=== PATIENT | female | born 1975 | race African-American/Black ===

== ENCOUNTER 2020-12-15 03:43 | Emergency (ER) | payer MEDICAID ==
[~2020-12-15] VITALS: Ht 165.1 cm; Wt 84.0 kg
[2020-12-15 04:05] VITALS: BP 122/62
[2020-12-15] MEDS ORDERED: ACETAMINOPHEN 500 MG TABLET PO ONE (04:15)
== END 2020-12-15 04:23 | disposition home or self-care (01) ==
LOC: EMS 03:49
DX: R51.9 Headache, unspecified (principal); Y04.2XXA Assault by strike against or bumped into by another person, initial encounter; Y93.89 Activity, other specified; Y92.89 Other specified places as the place of occurrence of the external cause; Y99.8 Other external cause status
CPT/HCPCS: 99283

== ENCOUNTER 2022-07-07 21:36 | Emergency (ER) | payer MEDICAID, OTHER ==
[~2022-07-07] VITALS: Ht 154.9 cm; Wt 81.8 kg
[2022-07-07 21:59] VITALS: BP 113/64
[2022-07-08] MEDS ORDERED: IBUP-1554 PO (02:33)
[2022-07-08] MEDS ORDERED: ACET-2080 PO (02:33)
[2022-07-08] MEDS ORDERED: BACL10TA PO (02:33)
== END 2022-07-08 03:02 | disposition home or self-care (01) ==
LOC: EMS 21:36
DX: S13.4XXA Sprain of ligaments of cervical spine, initial encounter (principal); S39.012A Strain of muscle, fascia and tendon of lower back, initial encounter; Z98.890 Other specified postprocedural states; V89.2XXA Person injured in unspecified motor-vehicle accident, traffic, initial encounter; Y93.89 Activity, other specified; Y92.89 Other specified places as the place of occurrence of the external cause; Y99.8 Other external cause status
CPT/HCPCS: 72040; 72072; 72100; 99284; Z7502

== ENCOUNTER 2024-04-03 01:21 | Emergency (ER) | payer OTHER ==
[~2024-04-03] VITALS: Ht 157.5 cm; Wt 72.7 kg
[~2024-04-03 01:21] MED LIST: ACET-2080 PO; BACL10TA PO; IBUP-1554 PO
[2024-04-03 01:30] VITALS: BP 116/75; PULSE 85; RESP 16; TEMP 98.1; O2SAT 99
[2024-04-03 02:03] LABS: HEMATOCRIT 38.1 % (36-46); HEMOGLOBIN 12.7 g/dL (12.0-16.0); LYMPHOCYTES # (AUTO) 1.5 K/uL (1.0-4.8); LYMPHOCYTES % (AUTO) 37.9 % (22.0-44.0); MEAN CORPUSCULAR HEMOGLOBIN 28.8 pg (26.0-34.0); MEAN CORPUSCULAR HGB CONC 33.3 G/dL (31.0-37.0); MEAN CORPUSCULAR VOLUME 87 fL (80-100); MONOCYTES # (AUTO) 0.3 K/uL (0.1-1.0); MONOCYTES % (AUTO) 7.4 % (2.0-9.0); NEUTROPHILS % (AUTO) 50.7 % (40.0-70.0); PLATELET COUNT (AUTO) 297 K/uL (150-450); RED BLOOD CELL COUNT(AUTO) 4.39 MIL/uL (4.00-5.20); RED CELL DISTRIBUTION WIDTH 14.1 % (11.5-14.5)
[2024-04-03 02:13] LABS: ANION GAP 9 mmol/L (8-16); CALCIUM, TOTAL 8.5 mg/dL (8.8-10.5); CARBON DIOXIDE 30 mmol/L (22-29); CHLORIDE 103 mmol/L (98-107); CREATININE 0.88 mg/dL (0.60-1.30); GLOMERULAR FILTR. RATE CALC > 60 mL/min (>60); GLUCOSE,RANDOM 77 mg/dL (70-110); POTASSIUM 3.6 mmol/L (3.5-5.1); SODIUM SERUM 142 mmol/L (136-145); UREA NITROGEN, BLOOD 6 mg/dL (7-18)
[2024-04-03 02:25] LABS: TROPONIN I-HIGH SENSITIVITY 4 ng/L (<51)
[2024-04-03 02:26] LABS: B-TYPE NATRIURETIC PEPTIDE 5 pg/mL (0-100)
[2024-04-03 03:52] LABS: COVID AG,FIA SOURCE NASAL SWAB
[2024-04-03 04:11] LABS: INFLUENZA TYPE A NEGATIVE FOR TYPE A (NEGATIVE); INFLUENZA TYPE B NEGATIVE FOR TYPE B (NEGATIVE); SARS-COV2 (COVID) ANTIGEN,FIA Negative (Negative)
== END 2024-04-03 05:00 | disposition home or self-care (01) ==
LOC: EMS 01:22
DX: R07.9 Chest pain, unspecified (principal); Z20.822 Contact with and (suspected) exposure to COVID-19; Z98.890 Other specified postprocedural states
CPT/HCPCS: 71045; 80048; 83880; 84484; 84703; 85025; 87804; 93005; 99285; 36415-L1; 36415-TC